=== PATIENT | female | born 1985 | race African-American/Black ===

== ENCOUNTER 2016-11-28 16:37 | Emergency (ER) | payer BC, OTHER ==
--- NOTE | 2016-11-28 20:26 | ED ---
General Adult HPI - General Chief complaint: Fall Stated complaint: Fall Time Seen by Provider: 11/28/16 19:21 Source: patient, RN notes reviewed Mode of arrival: wheelchair Limitations: no limitations - History of Present Illness Initial comments: This is a 31-year-old female presents after a slip and fall that happened yesterday. Patient states she slipped on ice and fell onto her left side. Patient did not hit her head or lose consciousness. Patient complains of left arm, hand, left hip pain. Patient is able to ambulate but she states this is painful. Patient admits to some intermittent tingling to the left upper extremity and left lower extremity but denies any back or neck pain. Patient denies any numbness or weakness to bilateral upper or lower extremities. Patient denies any headache or visual changes but does admit to some mild nausea. Patient denies any vomiting or diarrhea. Patient denies any recent fever, chills, shortness breath, chest pain, abdominal pain, hematuria or any other complaints. Patient denies any chance of being and states her last menstrual period was last week. - Related Data Home Medications Medication Instructions Recorded Confirmed Unable To Assess [Unable to Assess] 11/28/16 11/28/16 Allergies Allergy/AdvReac Type Severity Reaction Status Date / Time Penicillins Allergy Rash/Hives Verified 11/28/16 17:19 Review of Systems ROS Statement: Those systems with pertinent positive or pertinent negative responses have been documented in the HPI. ROS Other: All systems not noted in ROS Statement are negative. Past Medical History Past Medical History: Thyroid Disorder Additional Past Medical History / Comment(s): scoliosis, muscle spasms in back from scoliosis, migraines, iron deficiency anemia. History of Any Multi-Drug Resistant Organisms: None Reported Past Surgical History: Section, Hernia Repair Additional Past Surgical History / Comment(s): 01/28/16 at [facility], abdominal hernia repair as a 3 yr old child, D&C after miscarriage, teeth extractions. Past Anesthesia/Blood Transfusion Reactions: No Reported Reaction Additional Past Anesthesia/Blood Transfusion Reaction / Comment(s): Pt has received blood in the past without reaction. Past Psychological History: Anxiety, Depression Additional Psychological History / Comment(s): Pt states she was taken off her anti-depressant because of . She lives at home with her son. She is independent. Her aunt is caring for her while she is hospitalized. Smoking Status: Never smoker Past Alcohol Use History: None Reported Additional Past Alcohol Use History / Comment(s): Maria Ines Mckeon is a nonsmoker. She denies any medical marijuana, marijuana, street drug or alcohol use. She works at [employer]. There are no pets in the home. No recent travel. Past Drug Use History: None Reported - Past Family History Father Family Medical History: Diabetes Mellitus Additional Family Medical History / Comment(s): Pt states her father is obese, has an abdominal hernia and mental illnesses. He is 58 yrs old. Mother Family Medical History: Cancer Additional Family Medical History / Comment(s): Mother at age 53 yrs of multiple myeloma General Exam - General Exam Comments Initial Comments: General: The patient is awake and alert, in no distress, and does not appear acutely ill. Neck: There is mild cervical midline tenderness. The neck is supple, there is no tenderness or JVD. Cardiovascular: There is a regular rate and rhythm. No murmur, rub or gallop is appreciated. Respiratory: Lungs are clear to auscultation, respirations are non-labored, breath sounds are equal. No wheezes, stridor, rales, or rhonchi. Musculoskeletal: There is tenderness along the cervical midline, to the left lateral aspect of the shoulder, to the left proximal humerus, to the radial aspect of the left wrist and to the medial aspect of the left hand. Patient is also tender to the lateral aspect of the left hip. There is no erythema, swelling or ecchymosis. Full range of motion, strength 5/5 and Sensation intact. Radial pulses 2+ bilaterally. Capillary refill is normal at less than 2 seconds. Neurological: A&O x 3. CN II-XII intact, There are no obvious motor or sensory deficits. Coordination appears grossly intact. Speech is normal. Skin: Skin is warm and dry and no rashes or lesions are noted. Psychiatric: Normal mood and affect. Limitations: no limitations Course Vital Signs 11/28/16 11/28/16 17:20 21:16 Temperature 98.8 F 97.7 F Pulse Rate 87 83 Respiratory 18 16 Rate Blood Pressure 130/82 130/87 O2 Sat by Pulse 99 100 Oximetry Medical Decision Making - Medical Decision Making This is a 31-year-old female who presents with left shoulder, left arm, left wrist/hand and left hip pain after a slip and fall yesterday. Patient denies head injury or LOC. On physical exam patient is neurologically intact. There is tenderness along the cervical midline, to the left lateral aspect of the shoulder, to the left proximal humerus, to the radial aspect of the left wrist and to the medial aspect of the left hand. Patient is also tender to the lateral aspect of the left hip. Full range of motion, strength 5/5 and Sensation intact. Radial pulses 2+ bilaterally. Capillary refill is normal at less than 2 seconds. Patient denies any chance of being today. X-rays of the cervical spine, left shoulder, left humerus, left wrist and left hip and AP pelvis were done and reviewed showing: X-ray wrist left: There is no acute fracture or dislocation. X-ray left shoulder: There is no acute fracture or dislocation x-ray left humerus: There is no acute fracture or dislocation. X-ray left hip and AP pelvis: There is no acute fracture or dislocation of the pelvis or left hip. X-ray cervical spine: No acute fracture or dislocation seen in the cervical spine. Reports read by Dr. Jones. I discussed results with patient. Patient is able to ambulate in the EC today. I discussed rest, ice, elevate and use Tylenol or Motrin as needed [id number] for any pain. I discussed return parameters. If symptoms do not improve in the next 7 days repeat x-rays may be needed to rule out occult fracture. Discussed that patient should follow up with PCP in one to 2 days or return to the EC for any worsening symptoms or for any further concerns. Patient was receptive to this plan and patient will be discharged home. Disposition Clinical Impression: Fall, Left arm pain, Left hip pain Disposition: HOME SELF-CARE Condition: Good Instructions: Fall Prevention for Older Adults (ED) Additional Instructions: Please rest, ice, elevate and use [id number] Tylenol and or Motrin as needed for any pain.Please use medication as discussed. Please follow-up with family doctor in the next 2 days of symptoms have not improved. Please return to emergency room if the symptoms increase or worsen or for any other concerns. Referrals: Sissy Landers MD [Primary Care Provider] - 1-2 days Time of Disposition: 20:55
--- NOTE | 2016-11-28 20:46 | XR ---
EXAMINATION TYPE: XR Hip LT and AP Pelvis DATE OF EXAM: 11/28/2016 8:37 PM COMPARISON: NONE HISTORY: Pain TECHNIQUE: A single AP view of the pelvis is obtained. Two views of the hip are obtained. FINDINGS: There is no acute fracture/dislocation evident in the pelvis. The hip and sacroiliac join ts appear symmetric and unremarkable. The overlying soft tissue appears unremarkable. Two views of left hip show no acute fracture or dislocation. No focal lytic or sclerotic lesion seen in the proximal left femur. The overlying soft tissue is unremarkable. IMPRESSION: There is no acute fracture or dislocation in the pelvis or left hip.
--- NOTE | 2016-11-28 20:47 | XR ---
EXAMINATION TYPE: XR wrist complete LT DATE OF EXAM: 11/28/2016 8:36 PM CLINICAL HISTORY: pain TECHNIQUE: Frontal, lateral and oblique images of the left wrist are obtained. COMPARISON: None. FINDINGS: There is no acute fracture/dislocation evident. The joint spaces appear within normal ngo its. The overlying soft tissue appears unremarkable. IMPRESSION: There is no acute fracture or dislocation seen. ICD 10 NO FRACTURE, INITIAL EVALUATION
--- NOTE | 2016-11-28 20:47 | XR ---
EXAMINATION TYPE: XR shoulder complete LT, XR humerus LT DATE OF EXAM: 11/28/2016 8:36 PM CLINICAL HISTORY: pain TECHNIQUE: Frontal and lateral images of the left humerus are obtained. COMPARISON: None. FINDINGS: There is no acute fracture/dislocation evident. The joint spaces appear within normal limi ts. The overlying soft tissue appears unremarkable. IMPRESSION: There is no acute fracture or dislocation. ICD 10 NO FRACTURE, INITIAL EVALUATION EXAMINATION TYPE: XR shoulder complete LT, XR humerus LT DATE OF EXAM: 11/28/2016 8:36 PM CLINICAL HISTORY: pain COMPARISON: NONE TECHNIQUE: Three views of the left shoulder are obtained. FINDINGS: There is no acute fracture/dislocation evident. There is evidence of calcific tendinopath y. The acromioclavicular and glenohumeral joint spaces appear within normal limits. The visualized r ibs are intact and unremarkable. IMPRESSION: 1. There is no acute fracture or dislocation. ICD 10 NO FRACTURE, INITIAL EVALUATION
--- NOTE | 2016-11-28 20:48 | XR ---
EXAMINATION TYPE: XR cervical spine comp DATE OF EXAM: 11/28/2016 8:37 PM CLINICAL HISTORY: pain COMPARISON: NONE TECHNIQUE: Frontal, lateral, oblique, swimmers, and open mouth view of the cervical spine are obtaine d. FINDINGS: The cervical spine is visualized in its entirety from C1 thru the top of T1 level. It is s atisfactory in alignment without evidence of acute fracture or dislocation. The pre-vertebral soft t issue appears within normal limits. Disc spaces are well preserved. The C1-C2 articulation is unremar kable on the open mouth view. The oblique images are within normal limits. IMPRESSION: No acute fracture or dislocation is seen in the cervical spine.ICD 10 NO FRACTURE, INITI AL EVALUATION
[2016-11-28 21:17] VITALS: BP 130/87; PULSE 83; RESP 16; TEMP 97.7
== END 2016-11-28 21:16 | disposition home or self-care (01) ==
LOC: EC 16:37
DX: M25.552 Pain in left hip (principal); M79.602 Pain in left arm; Z88.0 Allergy status to penicillin; W00.0XXA Fall on same level due to ice and snow, initial encounter
CPT/HCPCS: 72050; 73502; 99283

== ENCOUNTER → 2017-12-31 | Outpatient (CLI) | payer OTHER ==
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
== END | disposition home or self-care (01) ==
LOC: SLEEP 13:00
PROVIDERS: ATTEND Internal Medicine Critical Care Medicine
DX: G47.10 Hypersomnia, unspecified (principal); R06.83 Snoring; O99.43 Diseases of the circulatory system complicating the puerperium; M41.84 Other forms of scoliosis, thoracic region; Z79.899 Other long term (current) drug therapy; Z88.1 Allergy status to other antibiotic agents; Z86.79 Personal history of other diseases of the circulatory system
CPT/HCPCS: 99211

== ENCOUNTER → 2018-05-27 | Outpatient (CLI) | payer BC, OTHER ==
--- NOTE | 2018-05-27 18:23 | PN ---
PROGRESS NOTE This patient is 32, with a diagnosis of mild symptomatic obstructive sleep apnea with an AHI of 10. Her [place] score initially was at 9. The patient was titrated with CPAP and she was given a CPAP pressure of 14 cm of water. On today's evaluation the patient is coming in for a compliancy check. She reports that she is liking the machine; however, she is unable to tolerate it and she is unable to use it more than 3 or 4 hours per night. I checked her compliance data, and based on the past 30 days, the patient has used her CPAP machine 19/30 days. Her CPAP use for more than 4 hours is 03/10. Her average CPAP use is around 2.9 hours per night. AHI is down to 1.7. No major air leaks around the mask. She is using the AirFit P10, medium size. I checked the patient's CPAP machine. I checked also her mask interface. Obviously the AirFit P10 is of a large size and the nasal pillows are way larger than her nostrils. I downsized her to a small-sized AirFit P10. I think the treatment is successful as long as the patient's AHI is less than 1.7, yet the high pressure is giving her difficulties in tolerating the machine. Based on that, I switched this patient to an APAP instead of a regular CPAP unit. The patient is compliant with the treatment. She is feeling that she is improving and her sleep quality is better while on CPAP and she is interested in continuing the treatment as long as she can tolerate. REVIEW OF SYSTEMS: Twelve-point review of system was done. Positive findings are all mentioned above in the history of present illness. Her weight is stable at around 170. She has excessive daytime sleepiness, which is improving. She also has history of cardiomyopathy. She has no leg swelling, no exertional shortness of breath or angina. No palpitations. No cough or sputum production. No headaches. No other altered mentation. PHYSICAL EXAMINATION: BP is 122/78, pulse 81, respirations 16, weight 170, temperature 98.8. GENERAL APPEARANCE: Calm, comfortable. Head is atraumatic, normocephalic. Neck is short, supple. Crowding of posterior pharynx is present. No goiter or neck masses. LUNGS: Diminished breath sounds; otherwise clear. Heart sounds are regular rate and rhythm. Normal S1, S2. No S3, S4. No murmurs. ABDOMEN: Soft, nontender. No organomegaly. EXTREMITIES: No edema. No cyanosis or clubbing. SKIN: Negative for any wounds or ulceration. IMPRESSION: 1. Symptomatic obstructive sleep apnea, AHI of 10, currently on CPAP pressure of 14. Difficulty tolerating the machine as reflected on the compliancy data due to high pressure sensation. 2. Hypersomnia. 3. cardiomyopathy with secondary pulmonary hypertension. 4. Thoracic spine kyphoscoliosis. PLAN: 1. Encourage weight loss. 2. Switch this patient to an mode with a minimum pressure of 4, maximum pressure of 14. 3. Downsize the AirFit P10 pillow to a small size. 4. See me back in a month's time for repeat compliancy evaluation regarding obstructive sleep apnea. Based on that, further recommendations will be done. HERACLIO / DEANN: [id number] /
== END | disposition home or self-care (01) ==
LOC: SLEEP 15:48
PROVIDERS: ATTEND Internal Medicine Critical Care Medicine
DX: G47.33 Obstructive sleep apnea (adult) (pediatric) (principal); O90.3 Peripartum cardiomyopathy; I27.29 Other secondary pulmonary hypertension; M41.84 Other forms of scoliosis, thoracic region; Z99.89 Dependence on other enabling machines and devices

== ENCOUNTER 2019-05-14 15:57 | Emergency (ER) | payer OTHER, BC ==
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
--- NOTE | 2019-05-14 17:30 | XR ---
EXAMINATION TYPE: XR Hip RT and AP Pelvis DATE OF EXAM: 05/14/2019 COMPARISON: NONE HISTORY: TECHNIQUE: A single AP view of the pelvis is obtained. Two views of the right hip are obtained. FINDINGS: The pelvic ring is intact. Proximal right femur and hip joint appear normal. There is no si gn of hip dysplasia. Sacroiliac joints appear normal. IMPRESSION: Negative pelvis and right hip exam.
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
[2019-05-14] MEDS ORDERED: SODIUM CHLORIDE 0.9% 1,000 ML IV ONE (17:35)
[2019-05-14] MEDS ORDERED: KETOROLAC 30 MG/ML 1 ML VIAL IVP STA (17:35)
[2019-05-14 19:29] VITALS: BP 129/87; PULSE 86; RESP 17; TEMP 98.1
== END 2019-05-14 19:35 | disposition home or self-care (01) ==
LOC: EC 15:57
DX: M54.2 Cervicalgia (principal); R51 Headache; M25.551 Pain in right hip; I11.9 Hypertensive heart disease without heart failure; Z98.890 Other specified postprocedural states; Z79.899 Other long term (current) drug therapy; Z88.0 Allergy status to penicillin; V43.52XA Car driver injured in collision with other type car in traffic accident, initial encounter; Y92.410 Unspecified street and highway as the place of occurrence of the external cause
CPT/HCPCS: 99285; 73502; 71046; 72125; 70450; J1885